=== PATIENT | female | born 1975 | race Caucasian/White ===

== ENCOUNTER 2016-04-21 18:05 | Emergency (ER) | payer OTHER ==
[~2016-04-21] VITALS: Ht 162.6 cm; Wt 83.4 kg
[2016-04-21 18:16] VITALS: BP 154/104; PULSE 115; RESP 16; TEMP 100; O2SAT 98
== END 2016-04-21 20:24 | disposition left against medical advice (07) ==
LOC: PHED 18:05
DX: R50.9 Fever, unspecified (principal)
CPT/HCPCS: 99281

== ENCOUNTER → 2016-05-09 | Outpatient (CLI) | payer OTHER ==
--- NOTE | 2016-05-09 15:59 | RADRPT ---
EXAM DATE/TIME: 05/09/2016 14:55 [facility] COMPARISON: No previous studies available for comparison. INDICATIONS : Benign neoplasm with right flank pain for 3 days. MEDICAL HISTORY : Gastroesophageal reflux disease. Right flank pain. SURGICAL HISTORY : Cholecystectomy. section. ENCOUNTER: Initial ACUITY: 1 day PAIN SCORE: 0/10 LOCATION: Right flank MEASUREMENTS: RIGHT KIDNEY: 11.5 x 4.2 x 4.0 cm LEFT KIDNEY: 11.0 x 5.0 x 5.4 cm FINDINGS: There is evidence of a solid echogenic mass within the midpole the right kidney measuring 1.8 x 2.0 x 2.0 cm which raises the possibility of angiomyolipoma. CT or MRI of the abdomen with contrast may be helpful for further characterization of this solid echogenic mass. There is no hydronephrosis or sto ne on either side. The left kidney is unremarkable. The urinary bladder is nondistended and its evalu ation is limited. CONCLUSION: Solid echogenic mass within the midpole the right kidney measuring 1.8 x 2.0 x 2.0 cm which raises th e possibility of angiomyolipoma. CT or MRI of the abdomen with contrast may be helpful for further ch aracterization of this solid echogenic mass. Vamsi Delgadillo MD on May 09, 2016 at 15:56 Board Certified Radiologist. This report was verified electronically.
== END ==
LOC: HRAD 14:33
DX: D30.00 Benign neoplasm of unspecified kidney (principal)
CPT/HCPCS: 76775

== ENCOUNTER → 2016-05-25 | Outpatient (CLI) | payer OTHER ==
--- NOTE | 2016-05-25 17:58 | RADRPT ---
EXAM DATE/TIME: 05/25/2016 13:06 [facility] COMPARISON: No previous studies available for comparison. INDICATIONS : Intermittent right flank pain. ORAL CONTRAST: Patient refused oral contrast. RADIATION DOSE: 9.96 CTDIvol (mGy) MEDICAL HISTORY : None SURGICAL HISTORY : None. ENCOUNTER: Initial ACUITY: 1 month PAIN SCALE: 4/10 LOCATION: Right flank TECHNIQUE: Volumetric scanning of the abdomen and pelvis was performed. Using automated exposure control and ad justment of the mA and/or kV according to patient size, radiation dose was kept as low as reasonably achievable to obtain optimal diagnostic quality images. FINDINGS: The lung bases demonstrate a 1 cm nodule in the right lower lobe on the hemidiaphragmatic surface. Th ere are several other sub-5 mm nodules in the lungs. Cannot exclude metastatic disease. Recommend fur ther evaluation with chest CT. No acute bony abnormalities. No focal abnormality is seen in the liver, spleen, adrenals or pancreas. There is a fat containing 1.7 cm right renal lesion most characteristic of angiomyolipoma. Left kidn ey unremarkable. No renal calculi or obstructive uropathy. No free fluid. Small exophytic lesion posterior uterus characteristic of a small fibroid. No other pe lvic masses. No adenopathy. Small hiatal hernia. CONCLUSION: 1. Multiple nodules at the lung bases measuring up to 1 cm on the right. Cannot exclude metastatic di sease. Recommend further evaluation with chest CT. 2. 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 No renal calculi or obstructive uropathy. No abdominal masses or adenopathy. Taurus Guardado MD on May 25, 2016 at 17:52 Board Certified Radiologist. This report was verified electronically.
--- NOTE | 2016-05-25 18:12 | RADRPT ---
EXAM DATE/TIME: 05/25/2016 13:23 [facility] COMPARISON: No previous studies available for comparison. INDICATIONS : Pelvic pain prior to menses. MEDICAL HISTORY : Endometriosis. Fibroids. SURGICAL HISTORY : section. Cholecystectomy. D&C. ENCOUNTER: Initial ACUITY: 4-6 months PAIN SCORE: 0/10 LOCATION: Bilateral pelvis MEASUREMENTS: UTERUS: 7.5 x 6.4 x 5.2 cm ENDOMETRIAL STRIPE: 5 mm RIGHT OVARY: 3.2 x 1.8 x 1.2 cm LEFT OVARY: 1.9 x 3.0 x 1.9 cm FINDINGS: UTERUS: There are a pair of cervical nabothian cysts. Mildly heterogeneous uterine echotexture. Probable smal l hypoechoic fibroids in the body of the uterus measuring slightly greater than a centimeter and slig htly less than 2 cm respectively. RIGHT OVARY: Ovary contains no mass or significant cystic lesion. LEFT OVARY: Ovary contains no mass or significant cystic lesion. MISCELLANEOUS: No free fluid. CONCLUSION: Small uterine fibroids. Nabothian cysts. Unremarkable ovaries. Homero Mathias MD on May 25, 2016 at 18:05 Board Certified Radiologist. This report was verified electronically.
== END ==
LOC: HRAD 12:02
DX: R10.2 Pelvic and perineal pain (principal); R07.89 Other chest pain
CPT/HCPCS: 74176; 76830; 76856; 93975

== ENCOUNTER → 2016-05-31 | Outpatient (CLI) | payer OTHER ==
[~2016-05-31] MED LIST: IOHEXOL 350 MG/ML 10 ML VIAL (for RAD DIAG) IV ONE
--- NOTE | 2016-05-31 14:56 | RADRPT ---
EXAM DATE/TIME: 05/31/2016 13:44 [facility] COMPARISON: CT ABDOMEN & PELVIS W/O CONTRAST, May 25, 2016, 13:06. INDICATIONS : Evaluate pulmonary nodule seen on recent CT of abdomen/pelvis. IV CONTRAST: 60 cc Omnipaque 350 (iohexol) IV RADIATION DOSE: 9.89 CTDIvol (mGy) MEDICAL HISTORY : None SURGICAL HISTORY : None. ENCOUNTER: Initial ACUITY: 1 day PAIN SCALE: 0/10 LOCATION: chest TECHNIQUE: Volumetric scanning of the chest was performed. Using automated exposure control and adjustment of t he mA and/or kV according to patient size, radiation dose was kept as low as reasonably achievable to obtain optimal diagnostic quality images. FINDINGS: LUNGS: There is no consolidation or pneumothorax. In the right lower lobe there is an ovoid nodule with smoo th margins measuring 10 x 8 mm. In the right middle lobe (image 30) there is a questionable 2 mm nodu le. Azygos fissure is present. There is linear opacity in the left lower lobe. PLEURA: There is no pleural thickening or pleural effusion. MEDIASTINUM: The heart and great vessels demonstrate no acute abnormality. There is no mediastinal or hilar lymph adenopathy. AXILLAE: Within normal limits. No lymphadenopathy. SKELETAL: There are mild degenerative changes of the thoracic spine. MISCELLANEOUS: The visualized upper abdominal organs demonstrate no acute abnormality. Patient is post cholecystecto my. There is a rim calcified hypodense left thyroid nodule measuring 2.1 x 1.8 cm. It has mild mass e ffect on the adjacent trachea. There is a small hiatal hernia. CONCLUSION: 1. There is a 10 x 8mm ovoid nodule in the right lower lobe with a questionable additional right midd le lobe 2 mm nodule. Suggest correlating with any prior imaging studies that could document longer te rm stability. If none are available suggest 3-6 month followup noncontrast chest CT. 2. There is a 2.1 cm rim calcified left thyroid nodule. Based on the size suggest dedicated thyroid u ltrasound for further characterization. Homero Messina MD on May 31, 2016 at 14:00 Board Certified Radiologist. This report was verified electronically.
== END ==
LOC: HRAD 13:19
DX: R91.1 Solitary pulmonary nodule (principal)
CPT/HCPCS: 71260; Q9967